=== PATIENT | female | born 2000 | race Caucasian/White ===

== ENCOUNTER 2018-12-12 22:15 | Emergency (ER) | payer BC, MEDICAID ==
[2018-12-12] MEDS ORDERED: Ibuprofen 800 MG Tab PO ONE (22:45)
--- NOTE | 2018-12-12 22:51 | EDM.PDOC ---
ED HPI GENERAL MEDICAL PROBLEM - General Chief Complaint: Back Pain or Injury Stated Complaint: BACK PAIN; SORE THROAT Time Seen by Provider: 12/12/18 22:30 Source of Information: Reports: Patient History Limitations: Reports: No Limitations - History of Present Illness INITIAL COMMENTS - FREE TEXT/NARRATIVE: 18-year-old female who reports she awoke at 4-5 AM today with sore throat.this has progressively worsened through the day and was associated with a subjective fever. She had malaise and a headache associated with this. She has mild nausea earlier but that has resolved. This evening she had to go to work and she developed some pain in her lower and mid back that seemed to radiate around to her front. This pain was a sharp pain. It was worse with palpation and movement. She reports that the sore throat is an 8/10 level of pain and is worse with swallowing. Her back pain is a 9/10. She has had no diarrhea. She has had no cough or nasal congestion. She has no ear pain. There are no other associated signs or symptoms. There are no other modifying factors. 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 - Related Data Allergies Allergy/AdvReac Type Severity Reaction Status Date / Time Sulfa (Sulfonamide Allergy Cannot Verified 12/12/18 22:30 Antibiotics) Remember Home Meds: Home Meds NK [No Known Home Meds] 12/12/18 [History] Past Medical History Genitourinary History: Reports: Other (See Below) Other Genitourinary History: 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 Lives at home with her parents.) Social History Comment: she works at [employer]. ED ROS GENERAL - Review of Systems Review Of Systems: See Below Constitutional: Reports: Fever, Malaise HEENT: Reports: Throat Pain Respiratory: Reports: No Symptoms Cardiovascular: Reports: No Symptoms GI/Abdominal: Reports: Abdominal Pain (mild), Nausea (mild earlier, now resolved ). Denies: Vomiting : Reports: No Symptoms Musculoskeletal: Reports: Back Pain Skin: Reports: No Symptoms Neurological: Reports: Headache Hematologic/Lymphatic: Reports: No Symptoms Immunologic: Reports: No Symptoms ED EXAM, GENERAL - Physical Exam Exam: See Below Exam Limited By: No Limitations General Appearance: Alert, WD/WN, Moderate Distress (pain) Eye Exam: Bilateral Eye: EOMI, Normal Inspection Ears: Normal External Exam, Normal TMs Ear Exam: Bilateral Ear: Auricle Normal, Canal Normal, TM normal Nose: Normal Inspection, Normal Mucosa, No Blood Throat/Mouth: Normal Voice, No Airway Compromise, Inflammation (and erythema posteriorly. There is no uvula deviation or evidence of peritonsillar abscess) Head: Atraumatic, Normocephalic Neck: Normal Inspection, Supple, Full Range of Motion, Lymphadenopathy (R), Lymphadenopathy (L) Respiratory/Chest: No Respiratory Distress, Lungs Clear, Normal Breath Sounds, No Accessory Muscle Use, Chest Non-Tender Cardiovascular: Normal Peripheral Pulses, No JVD, No Murmur, Tachycardia Peripheral Pulses: 2+: Radial (L), Radial (R), Dorsalis Pedis (L), Dorsalis Pedis (R) GI/Abdominal: Normal Bowel Sounds, Soft, No Organomegaly, No Distention, No Mass , Tender (mild tenderness). No: Guarding, Rebound Extremities: Normal Inspection, Normal Range of Motion, Non-Tender, No Pedal Edema, Normal Capillary Refill Neurological: Alert, Oriented, CN II-XII Intact, Normal Cognition, No Motor/ Sensory Deficits Skin Exam: Warm, Dry, Intact, Normal Color, No Rash Lymphatic: Adenopathy (in anterior cervical area as above.) Course - Vital Signs Last Recorded V/S: Last Vital Signs Temp 37.5 C 12/12/18 22:15 Pulse 126 H 12/12/18 22:15 Resp 24 H 12/12/18 22:15 BP 111/82 12/12/18 22:15 Pulse Ox 100 12/12/18 22:15 - Orders/Labs/Meds Meds: Medications Discontinued Medications Generic Name Dose Route Start Last Admin Trade Name Jah PRN Reason Stop Dose Admin Hydrocodone Bitart/Acetaminophen 2 tab 12/12/18 23:31 [place] 325-5 Mg PO 12/12/18 23:32 ONETIME ONE Dexamethasone 8 mg 12/12/18 23:31 Dexamethasone PO 12/12/18 23:32 ONETIME ONE Ibuprofen 800 mg 12/12/18 22:45 12/12/18 22:54 Motrin PO 12/12/18 22:46 800 mg ONETIME ONE Administration Penicillin G Procaine/Benzathine 1.2 millunits 12/12/18 23:31 Bicillin C-R 600/600 IM 12/12/18 23:32 ONETIME ONE - Re-Assessments/Exams Free Text/Narrative Re-Assessment/Exam: 12/12/18 23:25: Patient reports she still has back pain and sore throat despite the ibuprofen. Her rapid strep was positive for strep. I discussed treatment options with the patient and her uncle and I will treat her with Bicillin CR 1.2 main units IM, Decadron 8 mg by mouth and hydrocodone 5/325 2 tabs by mouth and plan on discharging the patient home at that time. Departure - Departure Time of Disposition: 23:55 Disposition: Home, Self-Care 01 Condition: Good Clinical Impression: Strep throat - Discharge Information Instructions: Strep Throat, [id number] Referrals: Arlene Guan NP [Primary Care Provider] - Forms: ED Department Discharge Additional Instructions: You have strep throat. You should drink plenty of fluids. You should rest. No work until 12/15/2018. You were given a penicillin injection to treat her strep throat. You were also given decadron (an anti-inflammatory medication) to help with the pain and swelling in your throat. Take Tylenol and ibuprofen as needed for fever or pain. Back to the emergency department for inability to swallow liquids, unrelenting vomiting or trouble breathing or any other concerning sign or symptom.
[2018-12-12] MEDS ORDERED: Penicillin G Benzathine/Procaine 600-600 1.2 Millunits/2 ML Syringe IM ONE (23:31)
[2018-12-12] MEDS ORDERED: Dexamethasone 4 MG/ML SDV PO ONE (23:31)
[2018-12-12] MEDS ORDERED: Acetaminophen/HYDROcodone 325-5 MG Tab PO ONE (23:31)
== END 2018-12-12 23:50 | disposition home or self-care (01) ==
LOC: FB.ED 22:15
DX: J02.0 Streptococcal pharyngitis (principal); Z88.2 Allergy status to sulfonamides
CPT/HCPCS: 87880; 96372; 99282; A9270; J0558; J1100

== ENCOUNTER 2021-08-18 12:40 | Emergency (ER) | payer OTHER, MEDICAID ==
[2021-08-18] MEDS: Aspirin 81 MG Tab.Chew PO ONE (13:33)
== END 2021-08-18 14:45 | disposition home or self-care (01) ==
LOC: FB.ED 12:40
DX: R07.89 Other chest pain (principal); F32.A Depression, unspecified; F41.9 Anxiety disorder, unspecified; R94.31 Abnormal electrocardiogram [ECG] [EKG]; Z88.2 Allergy status to sulfonamides
CPT/HCPCS: 36415; 71046; 80053; 84484; 85025; 93005; 99285-25; A9270-GY

== ENCOUNTER 2022-01-31 12:55 | Emergency (ER) | payer OTHER, MEDICAID ==
[2022-01-31] MEDS ORDERED: Nitroglycerin 0.4 MG Tab.SL SL ONE ×2 (13:12→13:46)
[2022-01-31] MEDS ORDERED: Aspirin 81 MG Tab.Chew PO ONE (13:12)
[2022-01-31] MEDS ORDERED: Ketorolac 30 MG/ML SDV IVPUSH ONE (13:46)
[2022-01-31 13:51] LABS: ESTIMATED GFR 106 mL/min (>60)
== END 2022-01-31 14:55 | disposition home or self-care (01) ==
LOC: FB.ED 12:55
DX: I42.9 Cardiomyopathy, unspecified (principal); Z88.2 Allergy status to sulfonamides; Z86.16 Personal history of COVID-19
CPT/HCPCS: 36415; 80053; 83880; 84484; 85025; 93005; 93010; 96374; 99283; 99285-25; A9270-GY; J1885

== ENCOUNTER 2022-04-20 00:01 | Emergency (ER) | payer OTHER, MEDICAID ==
[2022-04-20] MEDS ORDERED: cefTRIAXone 1 GM Vial IM ONE (00:15)
[2022-04-20] MEDS ORDERED: Ketorolac 30 MG/ML SDV IM ONE (00:16)
== END 2022-04-20 01:16 | disposition home or self-care (01) ==
LOC: FB.ED 00:01
DX: R50.9 Fever, unspecified (principal); R53.1 Weakness; J02.8 Acute pharyngitis due to other specified organisms; B96.89 Other specified bacterial agents as the cause of diseases classified elsewhere; Z79.899 Other long term (current) drug therapy; Z88.2 Allergy status to sulfonamides; Z86.16 Personal history of COVID-19
CPT/HCPCS: 96372; 99284; J0696; J1885